=== PATIENT | male | born 1990 | race African-American/Black ===

== ENCOUNTER 2017-02-05 19:32 | Emergency (ER) | payer OTHER ==
[~2017-02-05] VITALS: Ht 185.4 cm; Wt 142.9 kg
[2017-02-05 19:32] VITALS: BP 137/79
[2017-02-05] MEDS ORDERED: NAPR500T PO (20:26)
[2017-02-05] MEDS ORDERED: HYDR-963 PO (20:26)
--- NOTE | 2017-02-05 20:29 | PHYS DOC ---
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 Pt states immediately prior to arrival while playing in spring [employer] football game he suffered knee injury. Pt isn't certain if it occurred when he planted or if while he was getting piled on, but felt a pop in his right knee. Since then he's unable to bear weight right leg, complains of severe pain. No numbness/tingling/weakness/radiating sx, no prearrival treatment. No other complaints Onset: just prior to arrival Severity: severe Pain/Injury Location: right knee Method of Injury: sports injury Modifying Factors: improves with cold therapy, improves with immobilization, worse with jarring, worse with movement, improves with pain medication, improves with rest Allergies: Coded Allergies: No Known Drug Allergies (Unverified , 02/05/17) Past Medical History Medical History: no pertinent history Surgical History: noncontributory Social History Smoker: cigarettes, less than 1 pack/day Alcohol: occasionally Drugs: none Review of Systems Constitutional: denies chills, denies fever Respiratory: denies cough, denies shortness of breath Cardiovascular: denies chest pain, denies palpitations Gastrointestinal: denies nausea, denies vomiting Musculoskeletal: see HPI Psychiatric/Neurological: see HPI Physical Exam General Appearance: WD/WN, moderate distress Neck: non-tender, supple Cardiovascular/Respiratory: normal peripheral pulses, no respiratory distress Back: no CVA tenderness, no vertebral tenderness Knees: right knee other (patella riding high, +effusion, TTP at tibial tuberosity no patellar tendon palpated. 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 ATC will notify Dr Love (team Dr) and schedule ortho evaluation. Departure Time of Disposition: 20:27 Disposition: 01 HOME, SELF-CARE Diagnosis: Internal Derangement Right Knee NOS Condition: GOOD Patient Instructions: Knee Immobilizer, Pcop-iv-[id number], Patellar Tendon Tear/ Disruption with Rehab-SportsMed, SARA - Routine Care for Injuries, Wcma-wh-[id number] Additional Instructions: Nonweight bearing crutches only. Wear knee immobilizer. RICE, see handout. Rx: naprosyn, norco 10mg #30 Take meds with food. Take stool softeners/increase fluid intake while taking norco to prevent constipation. Follow up with Dr Love first available, scheduling to be per your ATC. Return to ED with new or changing symptoms. JACQUELINE HURLEY DO Feb 05, 2017 20:29
[2017-02-05] MEDS ORDERED: OXYCODONE/APAP 10/325 TABLET. PO ONE (20:30)
[2017-02-05] MEDS ORDERED: ONDANSETRON ODT 4 MG TAB.RAPDIS PO ONE (20:30)
--- NOTE | 2017-02-06 09:02 | RAD ---
Portable three-view study of the right knee History: Right knee pain. Injury today. Findings: The patella is displaced superiorly consistent with a patellar tendon rupture. No acute fracture or osteolytic process is seen. IMPRESSION: Patellar tendon rupture.
== END 2017-02-05 20:31 | disposition home or self-care (01) ==
LOC: EDBD 19:32 → ER 19:32
DX: M23.91 Unspecified internal derangement of right knee (principal); F17.210 Nicotine dependence, cigarettes, uncomplicated
CPT/HCPCS: 29505; 73562; 99284; Q0162

== ENCOUNTER 2017-11-15 12:32 | Emergency (ER) | payer OTHER ==
[~2017-11-15] VITALS: Ht 185.4 cm; Wt 156.1 kg
[~2017-11-15 12:32] MED LIST: HYDR-963 PO; NAPR-683 PO
[2017-11-15] MEDS ORDERED: HYDROcodone/APAP 5/325MG 1 TAB TABLET PO ONE (13:15)
[2017-11-15] MEDS ORDERED: ONDANSETRON ODT 4 MG TAB.RAPDIS PO ONE (13:15)
--- NOTE | 2017-11-15 13:34 | RAD ---
Right knee, 3 views, 11/15/2017: History: Trauma, pain The patellar position is high, similar to that seen on 02/05/2017. There is a bony fragment in the region of the inferior aspect of the patellar tendon. This may represent an avulsion fracture fragment arising from the tibial tuberosity versus a soft tissue ossification from an old injury. There is moderate soft tissue swelling in this region. No other fracture or dislocation is identified. Right tibia and fibula, 2 views, 11/15/2016: No additional fracture is identified. There is a elongated sclerotic patch in the distal tibia probably representing an old healed fibrous cortical defect. IMPRESSION: Probable tibial tuberosity avulsion fracture as described above. Clinical correlation with the integrity of the patellar tendon mechanism is suggested.
--- NOTE | 2017-11-15 13:48 | PHYS DOC ---
General Chief Complaint: LOWER EXT PAIN Stated Complaint: LOWER EXTREMITY PAIN Time Seen by MD: 12:50 Source: patient Exam Limitations: no limitations Problems: History of Present Illness Initial Comments Patient is a 27-year-old male who follows with Dr. Love orthopedics, he has a pre-existing right patellar tendon tear and is scheduled for surgery in early December. He states that yesterday he slipped and fell and felt a pop in his right knee on like that from his prior injury. His knee has been giving out on him and felt unsteady and it swelled overnight. He has arrived on crutches stating that it hurts to bear weight denies any other injuries from the fall. No numbness tingling weakness or radiating symptoms. Onset: yesterday Severity: moderate Pain/Injury Location: right knee Method of Injury: fell Modifying Factors: worse with jarring, worse with movement, improves with rest Allergies: Coded Allergies: No Known Drug Allergies (Unverified , 02/05/17) Past Medical History Medical History: no pertinent history Surgical History: noncontributory, other (prior right patellar tendon rupture repair) Social History Smoker: non-smoker Alcohol: none Drugs: none Review of Systems Constitutional: denies chills, denies fever Respiratory: denies cough, denies shortness of breath Cardiovascular: denies chest pain, denies palpitations Gastrointestinal: denies nausea, denies vomiting Musculoskeletal: see HPI Psychiatric/Neurological: see HPI Physical Exam General Appearance: WD/WN, no apparent distress Neck: non-tender, supple Cardiovascular/Respiratory: normal peripheral pulses, no respiratory distress Back: normal inspection, no vertebral tenderness Knees: left knee non-tender, left knee normal inspection, left knee normal range of motion, left knee no evidence of injury, right knee other (2+ effusion , no bony tenderness, positive Lockman no deformity) Neurologic/Tendon: normal sensation, normal motor functions, tendon function deficit, tendon injury visualized Psychiatric: alert, oriented x 3 Skin: normal color, warm/dry Orders, Labs, Meds PATIENT: HUNTER RENNER ACCOUNT: [id number] : 1990 LOCATION: ER AGE: 27 SEX: M EXAM [id number] STATUS: REG ER ORD. PHYSICIAN: JACQUELINE HURLEY DO REASON: trauma/pain PROCEDURE: KNEE RIGHT 4V; TIBIA FIBULA RIGHT Right knee, 3 views, 11/15/2017: History: Trauma, pain The patellar position is high, similar to that seen on 02/05/2017. There is a bony fragment in the region of the inferior aspect of the patellar tendon. This may represent an avulsion fracture fragment arising from the tibial tuberosity versus a soft tissue ossification from an old injury. There is moderate soft tissue swelling in this region. No other fracture or dislocation is identified. Right tibia and fibula, 2 views, 11/15/2016: No additional fracture is identified. There is a elongated sclerotic patch in the distal tibia probably representing an old healed fibrous cortical defect. IMPRESSION: Probable tibial tuberosity avulsion fracture as described above. Clinical correlation with the integrity of the patellar tendon mechanism is suggested. DICTATED AND SIGNED BY: PÉREZ MARIANO MD DATE: 11/15/17 1320 CC: DASH CONNORS; JACQUELINE HURLEY DO ~ PATIENT: UHNTER RENNER ACCOUNT: [id number] : 1990 LOCATION: ER AGE: 27 SEX: M EXAM [id number] STATUS: REG ER ORD. PHYSICIAN: JACQUELINE HURLEY DO REASON: trauma/pain PROCEDURE: KNEE RIGHT 4V; TIBIA FIBULA RIGHT Right knee, 3 views, 11/15/2017: History: Trauma, pain The patellar position is high, similar to that seen on 02/05/2017. There is a bony fragment in the region of the inferior aspect of the patellar tendon. This may represent an avulsion fracture fragment arising from the tibial tuberosity versus a soft tissue ossification from an old injury. There is moderate soft tissue swelling in this region. No other fracture or dislocation is identified. Right tibia and fibula, 2 views, 11/15/2016: No additional fracture is identified. There is a elongated sclerotic patch in the distal tibia probably representing an old healed fibrous cortical defect. IMPRESSION: Probable tibial tuberosity avulsion fracture as described above. Clinical correlation with the integrity of the patellar tendon mechanism is suggested. DICTATED AND SIGNED BY: PÉREZ MARIANO MD DATE: 11/15/17 1320 CC: DASH CONNORS; JACQUELINE HURLEY DO ~ I discussed the possibility of ACL tear among other soft tissue injury possibilities. I discussed departure instructions with the patient verbally and provided them in written format. Discussed signs and symptoms to monitor as well as indications for urgent return to the department of the patient's questions were answered. Expressed agreement and understanding of treatment plan. Departure Time of Disposition: 13:59 Disposition: 01 HOME, SELF-CARE Diagnosis: internal derangement right knee NOS Condition: GOOD Patient Instructions: SARA - Routine Care for Injuries, Iyen-ey-Hjit Additional Instructions: SARA, see handout. Nonweightbearing crutches only until evaluated by orthopedics. As discussed, plain films revealed probable tibial tuberosity avulsion fracture which is likely old. Given your history and physical exam findings I'm highly suspicious for an ACL tear as well. Wear the knee immobilizer at all times except when bathing. Lpvs-[id number]-[id number] ibuprofen for baseline discomfort. Prescription: [place] 7.5 mg quantity 15 Follow-up with your orthopedic surgeon this week. Return to ED with new or changing symptoms JACQUELINE HURLEY DO Nov 15, 2017 13:48
[2017-11-15] MEDS ORDERED: HYDR-965 PO (14:03)
[2017-11-15 14:19] VITALS: BP 145/75
== END 2017-11-15 14:19 | disposition home or self-care (01) ==
LOC: ER 12:32
DX: M23.91 Unspecified internal derangement of right knee (principal); W01.0XXA Fall on same level from slipping, tripping and stumbling without subsequent striking against object, initial encounter; Y93.89 Activity, other specified; Y99.8 Other external cause status; Y92.89 Other specified places as the place of occurrence of the external cause
CPT/HCPCS: 29505; 73564; 73590; 99284; Q0162

== ENCOUNTER 2019-06-13 07:57 | Emergency (ER) | payer OTHER ==
[~2019-06-13] VITALS: Ht 185.4 cm; Wt 147.4 kg
[~2019-06-13 07:57] MED LIST changes: +HYDR-3136 PO; +HYDR-3166 PO; -HYDR-963 PO
[2019-06-13 08:16] VITALS: BP 139/76
--- NOTE | 2019-06-13 08:32 | PHYS DOC ---
Past History Past Medical History: No Pertinent History Past Surgical History: Other Alcohol Use: Occasionally Drug Use: None Adult General Chief Complaint Chief Complaint: HAND PROBLEM HPI HPI 28-year-old male presents with right hand pain. The patient punched a door couple of days ago and has continued to have swelling and pain in the medial aspect posterior side of the right hand. The pain is manageable, he is wants to make sure there is not a fracture that would require splinting or casting. He denies any other injuries or complaints. Review of Systems Review of Systems Constitutional: Denies fever or chills [] Eyes: Denies change in visual acuity, redness, or eye pain [] HENT: Denies nasal congestion or sore throat [] Respiratory: Denies cough or shortness of breath [] Cardiovascular: No additional information not addressed in HPI [] GI: Denies abdominal pain, nausea, vomiting, bloody stools or diarrhea [] : Denies dysuria or hematuria [] Musculoskeletal: Right hand pain[] Integument: Denies rash or skin lesions [] Neurologic: Denies headache, focal weakness or sensory changes [] Endocrine: Denies polyuria or polydipsia [] All other systems were reviewed and found to be within normal limits, except as documented in this note. Allergies Allergies Allergies Coded Allergies Type Severity Reaction Last Updated Verified No Known Drug Allergies 02/05/17 No Physical Exam Physical Exam Constitutional: Well developed, well nourished, no acute distress, non-toxic appearance. [] HENT: Normocephalic, atraumatic, bilateral external ears normal, oropharynx moist, no oral exudates, nose normal. [] Eyes: PERRLA, EOMI, conjunctiva normal, no discharge. [] Neck: Normal range of motion, no tenderness, supple, no stridor. [] Cardiovascular:Heart rate regular rhythm, no murmur [] Lungs & Thorax: Bilateral breath sounds clear to auscultation [] Abdomen: Bowel sounds normal, soft, no tenderness, no masses, no pulsatile masses. [] Skin: Warm, dry, no erythema, no rash. [] Back: No tenderness, no CVA tenderness. [] Extremities: Tenderness over the dorsum metacarpals, fourth and fifth. Mild to moderate swelling. No ecchymosis or erythema.[] Neurologic: Alert and oriented X 3, normal motor function, normal sensory function, no focal deficits noted. [] Psychologic: Affect normal, judgement normal, mood normal. [] Current Patient Data Vital Signs Vital Signs Date Time Temp Pulse Resp B/P (MAP) Pulse Ox O2 Delivery O2 Flow Rate FiO2 06/13/19 08:16 97.5 70 22 97 Room Air EKG EKG [] Radiology/Procedures Radiology/Procedures [] Impressions: EXAM: PA, oblique and lateral views of the right hand DATE: 06/13/2019 8:12 AM INDICATION: Right hand pain, punching injury COMPARISON: No Prior FINDINGS/ IMPRESSION: There is a transverse fracture through the shaft of the right fifth metacarpal and apex dorsal angulation. Moderate overlying soft tissue swelling is seen. Electronically signed by: Akira Alvarez MD (06/13/2019 8:33 AM) [facility] DICTATED AND SIGNED BY: AKIRA ALVAREZ MD DATE: 06/13/19 0833 CC: FAWN DE LA CRUZ DO; PCP,NO ~ Course & Med Decision Making Course & Med Decision Making Pertinent Labs and Imaging studies reviewed. (See chart for details) The patient does have a transverse fracture of the fifth metacarpal with some angulation. See official report for details. We will place the patient in an ulnar gutter splint. I will advise that he follow-up with orthopedics to discuss definitive treatment. He is stable for discharge at this time. [] Dragon Disclaimer Dragon Disclaimer This electronic medical record was generated, in whole or in part, using a voice recognition dictation system. Departure Departure: Impression: Primary Impression: Fracture of fifth metacarpal bone of right hand Disposition: 01 HOME, SELF-CARE Condition: STABLE Referrals: PCP,NO (PCP) Patient Instructions: Hand Fracture, Fifth Metacarpal Additional Instructions: Please call the [facility] for follow-up of your hand fracture. Their phone number is [phone]. Problem Qualifiers Primary Impression: Fracture of fifth metacarpal bone of right hand Encounter type: initial encounter Fracture type: closed Metacarpal location: shaft Fracture alignment: nondisplaced Qualified Codes: S62.356A - Nondisplaced fracture of shaft of fifth metacarpal bone, right hand, initial encounter for closed fracture FAWN DE LA CRUZ DO Jun 13, 2019 08:32
--- NOTE | 2019-06-13 08:37 | RAD ---
EXAM: PA, oblique and lateral views of the right hand DATE: 06/13/2019 8:12 AM INDICATION: Right hand pain, punching injury COMPARISON: No Prior FINDINGS/ IMPRESSION: There is a transverse fracture through the shaft of the right fifth metacarpal and apex dorsal angulation. Moderate overlying soft tissue swelling is seen. Electronically signed by: Akira Alvarez MD (06/13/2019 8:33 AM) [facility]
== END 2019-06-13 09:21 | disposition home or self-care (01) ==
LOC: ER 07:57
DX: S62.356A Nondisplaced fracture of shaft of fifth metacarpal bone, right hand, initial encounter for closed fracture (principal); W22.8XXA Striking against or struck by other objects, initial encounter; Y93.89 Activity, other specified; Y92.89 Other specified places as the place of occurrence of the external cause; Y99.8 Other external cause status
CPT/HCPCS: 29125; 73130; 99284

== ENCOUNTER 2021-09-09 17:37 | Emergency (ER) | payer SELFPAY ==
[~2021-09-09] VITALS: Ht 185.4 cm; Wt 156.1 kg
[2021-09-09 17:55] VITALS: BP 139/76
--- NOTE | 2021-09-09 18:31 | RAD ---
Exam: Left ankle 3 views INDICATION: Rolled ankle TECHNIQUE: Frontal, lateral oblique views of the left ankle Comparisons: None FINDINGS: Mild soft tissue swelling surrounding the ankle. Bone mineralization is normal. Joint spaces are well -maintained. No acute or healed fractures. IMPRESSION: Soft tissue swelling surrounding the ankle without underlying osseous abnormality identified. Electronically signed by: Columba Vizcarra MD (09/09/2021 6:29 PM) [facility]
--- NOTE | 2021-09-09 18:40 | PHYS DOC ---
Past History Past Medical History: No Pertinent History Past Surgical History: Other Additional Past Surgical Histo: Patellar tendon rupture repair Smoking: Non-smoker Alcohol Use: None Social History Narrative: "hooka" General Adult EDM: Chief Complaint: ANKLE PROBLEM HPI: HPI: Patient is a 30-year-old male with past medical history of right patellar rupture with surgical repair presents with left ankle pain that is been going on for a few weeks. Patient states that he rolled his ankle a few weeks ago while walking to his car and has been able to bear weight on it since. Patient did not go to the emergency department after the initial injury. Patient states th at the pain is just not getting better but nothing is recently happened to make the pain worse. Patient has tried icing his ankle and elevating his ankle but has not tried any compression or ibuprofen. States that he is not having any numbness or tingling in his lower extremities. States that he is able to bear weight but it does cause some pain when he is at work. Review of Systems: Review of Systems: Constitutional: Denies fever or chills Eyes: Denies redness or eye pain HENT: Denies nasal congestion or sore throat Respiratory: Denies cough or shortness of breath Cardiovascular: Denies chest pain or palpitations GI: Denies abdominal pain, nausea, or vomiting : Denies dysuria or hematuria Musculoskeletal: Denies back pain, endorses left ankle pain Integument: Denies rash or skin lesions Neurologic: Denies headache, focal weakness or sensory changes Complete systems were reviewed and found to be within normal limits, except as documented in this note. Allergies: Allergies: Allergies Coded Allergies Type Severity Reaction Last Updated Verified No Known Drug Allergies 02/05/17 No Physical Exam: PE: Constitutional: Well developed, well nourished, no acute distress, non-toxic appearance HENT: Normocephalic, atraumatic Eyes: PERRL, EOMI, conjunctiva normal, no discharge Neck: Normal range of motion, no tenderness, supple Lungs & Thorax: No respiratory distress, equal chest rise and fall Abdomen: Soft, no tenderness Skin: Warm, dry, no erythema, no rash Back: No tenderness, no CVA tenderness Extremities: There is to palpation on the lateral aspect of the left ankle, pain with eversion of the foot, able to bear weight, neurovascularly intact, no bony abnormalities Neurologic: Alert and oriented X 3, normal motor function, normal sensory function, no focal deficits noted Psychologic: Affect normal, judgment normal Current Patient Data: Vital Signs: Vital Signs Date Time Temp Pulse Resp B/P (MAP) Pulse Ox O2 Delivery O2 Flow Rate FiO2 09/09/21 17:55 98.3 87 16 139/76 (97) 99 Room Air Radiology/Procedures: Radiology/Procedures: PROCEDURE: ANKLE LEFT 3V Exam: Left ankle 3 views INDICATION: Rolled ankle TECHNIQUE: Frontal, lateral oblique views of the left ankle Comparisons: None FINDINGS: Mild soft tissue swelling surrounding the ankle. Bone mineralization is normal. Joint spaces are well-maintained. No acute or healed fractures. IMPRESSION: Soft tissue swelling surrounding the ankle without underlying osseous abnormality identified. Electronically signed by: Columba Vizcarra MD (09/09/2021 6:29 PM) [facility] Heart Score: C/O Chest Pain: N/A Course & Med Decision Making: Course & Med Decision Making 30 year old male patient is presenting today with left ankle pain that have been going on for few weeks now. Patient states that he did injure his ankle by rolling it while walking to his car. Patient did not go to the emergency department after this injury initially. Patient does state that the pain is not getting any worse but it is not getting any better and that is why he came in tonight. Patient has tried a few different things to make the pain better like ice and elevation. Patient was instructed to take ibuprofen for pain relief. Patient ankle was also wrapped in an Chris bandage. Was given a work note off of work the rest of the week to allow for adequate healing. X-ray did not show any bony abnormalities or fractures. Patient instructed that he can follow-up with an market risk specialist if the pain does not resolve have some ligamentous or tendinous injury that is not picked up by an x-ray. Patient stable for discharge with outpatient follow-up with PCP. Discussed findings and plan with patient, who acknowledges understanding and agreement. George Disclaimer: George Disclaimer: This electronic medical record was generated, in whole or in part, using a voice recognition dictation system. Splinting Splinting : Location: Left ankle Pre-Made Type: Chris bandage Pre-Proc Neuro Vasc Exam: normal Post-Proc Neuro Vasc Exam: normal, unchanged from pre-exam Departure Departure: Impression: Primary Impression: Ankle sprain Qualified Codes: S93.402A - Sprain of unspecified ligament of left ankle, initial encounter Disposition: HOME / SELF CARE / HOMELESS Condition: STABLE Referrals: PCP,DASH (PCP) HOA LAMB DPM Patient Instructions: Ankle Sprain, Wove-cl-Fktp, Elastic Bandage and RICE Additional Instructions: Ice area of discomfort 20 minutes on then leave off next 20 minutes. Repeat several times daily for the next 2 days. Take [id number] ibuprofen/naproxen or Tylenol as needed for pain or discomfort. CLAY GODWIN DO Sep 09, 2021 18:40
== END 2021-09-09 18:51 | disposition home or self-care (01) ==
LOC: ER 17:37
DX: S93.402A Sprain of unspecified ligament of left ankle, initial encounter (principal); X50.9XXA Other and unspecified overexertion or strenuous movements or postures, initial encounter; Y93.01 Activity, walking, marching and hiking; Y92.89 Other specified places as the place of occurrence of the external cause; Y99.8 Other external cause status
CPT/HCPCS: 73610; 99283